=== PATIENT | male | born 1955 | race Caucasian/White ===

== ENCOUNTER 2025-03-31 06:21 | Day surgery (SDC) | payer OTHER, SELFPAY | END 2025-03-31 14:22 | disposition home or self-care (01) | LOC: GI 06:21 | PROVIDERS: ATTENDING PHYSICIAN Internal Medicine Gastroenterology | DX: K51.30 Ulcerative (chronic) rectosigmoiditis without complications (principal); K64.8 Other hemorrhoids; K64.4 Residual hemorrhoidal skin tags; R12 Heartburn; K44.9 Diaphragmatic hernia without obstruction or gangrene; K21.00 Gastro-esophageal reflux disease with esophagitis, without bleeding; D12.3 Benign neoplasm of transverse colon; D12.8 Benign neoplasm of rectum; K63.5 Polyp of colon | CPT/HCPCS: 45385; 45380; 43235; 88305 ==

== ENCOUNTER 2025-06-30 06:23 | Day surgery (SDC) | payer OTHER, SELFPAY | END 2025-06-30 15:41 | disposition home or self-care (01) | LOC: GI 06:23 | PROVIDERS: ATTENDING PHYSICIAN Internal Medicine Gastroenterology | DX: R12 Heartburn (principal); K44.9 Diaphragmatic hernia without obstruction or gangrene; K21.00 Gastro-esophageal reflux disease with esophagitis, without bleeding; K22.89 Other specified disease of esophagus | CPT/HCPCS: 43239; 88305 ==